=== PATIENT | female | born 1960 | race Caucasian/White ===

== ENCOUNTER 2023-03-21 15:21 | Outpatient (CLI) | payer BC, SELFPAY ==
--- NOTE | ~2023-03-21 | XR_ITS ---
EXAM: XR abdomen/kub 1V DATE: 03/21/2023 15:47 HISTORY: LEFT RENAL STONE . COMPARISON: None available. FINDINGS: Clear lung bases. Normal bowel gas pattern. No organomegaly. Calcific densities project ov er the left upper pole may represent nephroliths, bowel content, or vascular calcification. Moderate lumbar scoliosis. Multilevel moderate-severe lumbar degenerative disc disease. Bilateral hip osteoart hritis. IMPRESSION: Left upper renal pole calcifications versus artifact. Recommend comparison to outside arleen dies, if available. CT is more sensitive and specific for the detection of renal or collecting system calcifications. Reviewed, dictated and finalized at location K. IMPRESSION: Left upper renal pole calcifications versus artifact. Recommend com parison to outside studies, if available. CT is more sensitive and specific for the detection of renal or collecting system calcifications.
== END 2023-03-21 15:22 | disposition home or self-care (01) ==
PROVIDERS: PCP Internal Medicine; Visit Provider Urology
DX: N20.0 Calculus of kidney (principal)
CPT/HCPCS: 74018

== ENCOUNTER 2023-10-06 14:22 | Outpatient (CLI) | payer BC, SELFPAY ==
--- NOTE | ~2023-10-06 | CT_ITS ---
EXAMINATION: CT abdomen pelvis wo con DATE: 10/06/2023 15:00 INDICATION: Bilateral flank pain, history of nephrolithiasis TECHNIQUE: Computed tomography (CT) of the abdomen and pelvis was performed without intravenous contr ast. The dose-length product (DLP) was 217.08 mGy-cm. Automated exposure control and iterative recons truction technique were employed. COMPARISON: None FINDINGS: The lung bases are clear. The heart size is normal. Changes of cholecystectomy are noted. T he liver, spleen, pancreas, and adrenal glands are normal. There are peripelvic cysts of the kidneys. There is a 2 mm nonobstructing stone of the left mid kidney. No stones are identified in the ureters or bladder. No hydronephrosis or hydroureter. There is calcified atherosclerosis of the aorta and ma ny of the other arteries. No pathologically enlarged abdominal or pelvic lymph nodes are identified. No free intraperitoneal gas or evidence of bowel obstruction. There is severe lumbar spondylosis. IMPRESSION: 1. Nonobstructing left nephrolithiasis. Reviewed, dictated and finalized at location F. [employer] ADMIN[employer]RATOR
== END 2023-10-06 14:23 | disposition home or self-care (01) ==
PROVIDERS: PCP Internal Medicine; Visit Provider Urology
DX: N20.0 Calculus of kidney (principal)
CPT/HCPCS: 74176